=== PATIENT | female | born 1945 | race Caucasian/White ===

== ENCOUNTER → 2016-08-08 | Outpatient (CLI) | payer MEDICARE | LOC: PCVCIMAG 09:47 | PROVIDERS: ATTEND Internal Medicine Cardiovascular Disease | DX: E78.5 Hyperlipidemia, unspecified (principal); I73.9 Peripheral vascular disease, unspecified; I25.10 Atherosclerotic heart disease of native coronary artery without angina pectoris; I82.409 Acute embolism and thrombosis of unspecified deep veins of unspecified lower extremity; I10 Essential (primary) hypertension; Z95.828 Presence of other vascular implants and grafts | CPT/HCPCS: 80061; 93005; 93978; G0463 ==

== ENCOUNTER → 2017-02-20 | Outpatient (CLI) | payer MEDICARE ==
--- NOTE | 2017-02-20 13:06 | PCVCIMAG ---
EXAM: BILATERAL CAROTID DUPLEX INDICATION: Carotid Occlusive Disease. FINDINGS: Doppler Measurements (centimeters per second): RIGHT: Peak CCA-109, Peak ECA-232, Diastolic ICA-50, Peak ICA-219, ICA/CCA Ratio-2.0. LEFT: Peak CCA-109, Peak ECA-267, Diastolic ICA-49, Peak ICA-200, ICA/CCA Ratio-1.8. RIGHT CAROTID: The carotid bulb has moderate plaque. The proximal internal carotid artery shows 60-70% stenosis. The common carotid artery shows no significant stenosis. The external carotid artery shows 70% stenosis. LEFT CAROTID: The carotid bulb has moderate plaque. The proximal internal carotid artery shows 60-70% stenosis. The common carotid artery shows no significant stenosis. The external carotid artery shows 70% stenosis. Antegrade flow in both vertebral arteries. IMPRESSION: 60-70% stenosis of the right internal carotid artery with moderate plaque. 60-70% stenosis of the left internal carotid artery with moderate plaque. LOC:[place] [id number]
--- NOTE | 2017-02-20 13:14 | PCVCIMAG ---
EXAM: LEFT LOWER EXTREMITY ARTERIAL DUPLEX INDICATION: Peripheral Arterial Disease. Leg pain. FINDINGS: Left Leg: Satisfactory arterial waveforms in the common femoral and profunda femoral and superficial femoral arteries. Previous stent throughout the superficial femoral artery maintaining satisfactory patency. Mild stenosis throughout the common femoral artery. Elevated systolic velocity in the mid popliteal artery of 269 cm/s compatible with a 60-70% stenosis not felt to be critically flow-limiting. There is occlusion throughout the anterior tibial artery. The peroneal artery is patent. The posterior tibial artery is patent throughout. IMPRESSION: Previous left superficial femoral artery stents are maintaining satisfactory patency. Interval development of 60-70% stenosis mid left popliteal artery not felt to be critically flow-limiting. Interval follow-up is suggested. LOC:[id number]
== END | disposition home or self-care (01) ==
LOC: PCVCIMAG 11:12
PROVIDERS: ATTEND Internal Medicine Cardiovascular Disease
DX: I70.203 Unspecified atherosclerosis of native arteries of extremities, bilateral legs (principal); I65.23 Occlusion and stenosis of bilateral carotid arteries; I25.10 Atherosclerotic heart disease of native coronary artery without angina pectoris; I10 Essential (primary) hypertension; I82.403 Acute embolism and thrombosis of unspecified deep veins of lower extremity, bilateral; I77.89 Other specified disorders of arteries and arterioles; E78.00 Pure hypercholesterolemia, unspecified; B19.20 Unspecified viral hepatitis C without hepatic coma; F17.200 Nicotine dependence, unspecified, uncomplicated; Z90.49 Acquired absence of other specified parts of digestive tract; Z90.710 Acquired absence of both cervix and uterus; Z79.899 Other long term (current) drug therapy
CPT/HCPCS: 80061; 93005; 93880; 93926; G0463

== ENCOUNTER → 2017-08-28 | Outpatient (CLI) | payer MEDICARE | END | disposition home or self-care (01) | LOC: PCVCIMAG 09:40 | DX: I65.23 Occlusion and stenosis of bilateral carotid arteries (principal); I25.10 Atherosclerotic heart disease of native coronary artery without angina pectoris; I10 Essential (primary) hypertension; I77.9 Disorder of arteries and arterioles, unspecified; E78.5 Hyperlipidemia, unspecified; I73.9 Peripheral vascular disease, unspecified; F17.210 Nicotine dependence, cigarettes, uncomplicated; I70.8 Atherosclerosis of other arteries; R94.31 Abnormal electrocardiogram [ECG] [EKG]; Z79.899 Other long term (current) drug therapy | CPT/HCPCS: 80061; 93005; 93880; 93926; G0463 ==

== ENCOUNTER → 2018-02-08 | Outpatient (CLI) | payer MEDICARE | END | disposition home or self-care (01) | LOC: PCVCIMAG 15:09 | DX: M79.605 Pain in left leg (principal); M79.89 Other specified soft tissue disorders | CPT/HCPCS: 93971 ==

== ENCOUNTER → 2018-04-25 | Outpatient (CLI) | payer MEDICARE ==
[~2018-04-25] MED LIST: REGADENOSON 0.4 MG/5 ML DISP.SYRIN. IV ONE
--- NOTE | 2018-04-25 13:51 | PCVCIMAG ---
APPROVED REPORT Imaging Protocol: Rest Tc-99m/Stress Tc-99m 1 day Study performed: 04/25/2018 09:00:49 Indication: CAD Patient Location: Out-Patient Stress Nurse: Lachelle Monte RN [place] Tech:Andie AcevedoMT bur[place]MT Ht: 5 ft 2 in Wt: 153 lbs BSA: 1.71 m2 HR: 67 bpm BP: 113/53 mmHg BMI: 27.9 Rhythm: SR Medical History Medical History: CVD, COPD, HTN, Hyperlipidemia, PVD, Current Smoker, Age Medications: Amlodopine, Atorvastatin, Plazix, Lorazapam, Bystolic (held 24 hours) Allergies: No known drug allergies Previous Cardiac Procedures: PCI Pretest Chest Pain Characteristics: No chest pain Exercise History: Sedentary Physical Disabilities: LE Amputation Resting Data Rest SPECT myocardial perfusion imaging was performed in supine position 45 minutes following the intravenous injection of 11.1 mCi of Tc-99m Sestamibi. Time of rest injection: 0900 Date: 04/25/2018 Administration Route: IV Administration Site: Right Arm Pharmacologic Stress Pharmacologic stress test was performed by injecting Regadenoson 0.4 mg IV push over 10-15 seconds immediately followed by the intravenous injection of 33.7 mCi of Tc-99m Sestamibi. Time of stress injection: 1030 Administration Route: IV Administration Site: Right Arm Gated Stress SPECT was performed 45 minutes after stress injection. The images were gated to evaluate regional wall motion and calculate left ventricular ejection fraction. Stress Test Details Stress Test: Pharmacologic stress testing performed using 0.4 mg of regadenoson per 5 mL given IV over 10 seconds. Reason for pharmacologic stress test: physical limitation, uses a walker. HRMax Heart Rate (APMHR): 150 bpm Resting HR: 67 bpmTarget HR (85% APMHR): 127 bpm Max HR Achieved: 86 bpm % of APMHR: 57 Recovery HR: 76 bpm BP Resting BP: 113/53 mmHg Recovery BP: 123/58 mmHg ECG Resting ECG: Sinus Rhythm Stress ECG: Sinus Rhythm Recovery ECG: Sinus Rhythm Clinical Reason for Termination: Completed protocol Stress Symptoms: Dyspnea Exercise duration: 0 min 55 sec Symptoms resolved during recovery. Stress ECG Conclusion ECG: Non-ischemic Study Quality Study: Good Study Data Post stress, the left ventricular ejection was 67%.. SSS: 0 SRS: 1 SDS: 0 TID = 1.16. Perfusion No evidence of stress induced ischemia or prior myocardial infarction. Wall Motion Normal left ventricular size and function with no regional wall motion abnormalities. Nuclear Conclusion No evidence of stress induced ischemia or prior myocardial infarction. Normal left ventricular size and function with no regional wall motion abnormalities. Post stress, the left ventricular ejection was 67%. No change since prior study dated January 2016. Interpreted by: Robbie Cheng MD Electronically Approved: 04/25/2018 13:11:23 <Conclusion> ECG: Non-ischemic
--- NOTE | 2018-04-26 08:20 | PCVCIMAG ---
EXAM: BILATERAL CAROTID DUPLEX INDICATION: Carotid Occlusive Disease. FINDINGS: Doppler Measurements (centimeters per second): RIGHT: Peak CCA-95, Peak ECA-287, Diastolic ICA-38, Peak ICA-272, ICA/CCA Ratio-2.9. LEFT: Peak CCA-107, Peak ECA-171, Diastolic ICA-30, Peak ICA-206, ICA/CCA Ratio-1.9. RIGHT CAROTID: The carotid bulb has moderate plaque. The proximal internal carotid artery shows 70% stenosis. The common carotid artery shows no significant stenosis. The external carotid artery shows 70% stenosis. LEFT CAROTID: The carotid bulb has moderate plaque. The proximal internal carotid artery shows 60-70% stenosis. The common carotid artery shows no significant stenosis. The external carotid artery shows 60% stenosis. Antegrade flow in both vertebral arteries. IMPRESSION: 70% stenosis of the right internal carotid artery with moderate plaque. 60-70% stenosis of the left internal carotid artery with moderate plaque. No significant change since January 2017. LOC:[id number]
== END | disposition home or self-care (01) ==
LOC: PCVCIMAG 13:14
PROVIDERS: ATTEND Internal Medicine Cardiovascular Disease
DX: I65.23 Occlusion and stenosis of bilateral carotid arteries (principal); I25.10 Atherosclerotic heart disease of native coronary artery without angina pectoris; I10 Essential (primary) hypertension; I77.9 Disorder of arteries and arterioles, unspecified; J44.9 Chronic obstructive pulmonary disease, unspecified; E78.5 Hyperlipidemia, unspecified; E11.51 Type 2 diabetes mellitus with diabetic peripheral angiopathy without gangrene; F17.200 Nicotine dependence, unspecified, uncomplicated; Z88.8 Allergy status to other drugs, medicaments and biological substances; Z79.899 Other long term (current) drug therapy
CPT/HCPCS: 78452; 80061; 93005; 93017; 93880; A9500; G0463; J2785

== ENCOUNTER → 2018-10-10 | Outpatient (CLI) | payer MEDICARE ==
--- NOTE | 2018-10-10 16:47 | PCVCIMAG ---
EXAM: AORTOILIAC DUPLEX INDICATION: Peripheral arterial disease. Previous aortobiiliac graft. FINDINGS: AORTA: Suprarenal aorta measures maximum diameter of 2.5 cm. There is not a fusiform infrarenal aortic aneurysm. The infrarenal aorta measures maximum diameter of 2.2 cm. No aortic stenosis. Postsurgical changes of aorto by iliac graft. 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 Left limb of the bypass graft appears patent. RIGHT EXTERNAL ILIAC ARTERY: Complete chronic occlusion. Note also is made of occlusion of the right common femoral artery and upper right superficial femoral artery unchanged is 2011. LEFT EXTERNAL ILIAC ARTERY: 50-60% stenosis mid [place] left external iliac artery. IMPRESSION: Unchanged occlusion of the right limb of the aortobiiliac graft. Left limb of the aorta by iliac graft is patent. Unchanged occlusion of the [place] right common femoral and upper superficial femoral artery. 50-60% stenosis mid [place] left external iliac artery. LOC:[id number]
--- NOTE | 2018-10-10 16:52 | PCVCIMAG ---
EXAM: BILATERAL LOWER EXTREMITY ARTERIAL DUPLEX INDICATION: Peripheral Arterial Disease. Leg pain. FINDINGS: Right Leg: Occlusion of the [place] right common femoral artery and upper superficial femoral artery. Right above knee amputation. Left Leg: Increased systolic velocity 407 cm/s common femoral artery consistent with 60-70% stenosis. Increased systolic velocity 261 cm/s mid superficial femoral artery in the midportion of a prior stent consistent with 50% restenosis. Increased systolic velocity 419 cm/s mid [place] popliteal artery consistent with 80% stenosis. Occlusion of the anterior tibial artery and likely the proximal posterior tibial artery. Peroneal artery is patent. IMPRESSION: 60-70% stenosis left common femoral artery. 50% restenosis within prior stent mid left superficial femoral artery not felt be critically flow-limiting. 80% stenosis mid [place] left popliteal artery. Occlusion of the left anterior tibial and proximal posterior tibial arteries. LOC:[id number]
== END | disposition home or self-care (01) ==
LOC: PCVCIMAG 13:49
PROVIDERS: ATTEND Nuclear Medicine Nuclear Cardiology
DX: I73.9 Peripheral vascular disease, unspecified (principal); Z72.0 Tobacco use
CPT/HCPCS: 93925; 93978